=== PATIENT | male | born 2000 | race African-American/Black ===

== ENCOUNTER 2019-12-12 09:44 | Emergency (ER) | payer OTHER ==
[~2019-12-12] VITALS: Ht 182.9 cm; Wt 68.0 kg
[2019-12-12] MEDS ORDERED: NAPROSYN500 MG PO (11:07)
[2019-12-12 11:25] VITALS: BP 118/75
== END 2019-12-12 11:25 | disposition home or self-care (01) ==
LOC: ER 09:44
DX: S83.91XA Sprain of unspecified site of right knee, initial encounter (principal); F17.210 Nicotine dependence, cigarettes, uncomplicated; X50.0XXA Overexertion from strenuous movement or load, initial encounter; Y93.89 Activity, other specified; Y92.89 Other specified places as the place of occurrence of the external cause; Y99.0 Civilian activity done for income or pay

== ENCOUNTER 2020-03-04 11:07 | Emergency (ER) | payer OTHER ==
[~2020-03-04] VITALS: Ht 182.9 cm; Wt 68.0 kg
[~2020-03-04 11:07] MED LIST: NAPROSYN500 MG PO
[2020-03-04 11:11] VITALS: BP 117/75
[2020-03-04] MEDS ORDERED: KEFLEX500 M1 PO (11:50)
[2020-03-04] MEDS ORDERED: VALACYCLOVIR1000 MG PO (11:51)
== END 2020-03-04 12:05 | disposition home or self-care (01) ==
LOC: ER 11:07
DX: L01.00 Impetigo, unspecified (principal); K13.0 Diseases of lips; F17.210 Nicotine dependence, cigarettes, uncomplicated; Z91.013 Allergy to seafood

== ENCOUNTER 2021-03-01 14:59 | Emergency (ER) | payer OTHER ==
[~2021-03-01] VITALS: Ht 185.4 cm; Wt 70.8 kg
[~2021-03-01 14:59] MED LIST changes: +KEFLEX500 M1 PO; +VALACYCLOVIR1000 MG PO
[2021-03-01] MEDS ORDERED: NORCO5 PO (16:50)
[2021-03-01] MEDS ORDERED: NAPROSYN500 MG PO (16:50)
[2021-03-01 16:51] VITALS: BP 125/60
== END 2021-03-01 16:51 | disposition home or self-care (01) ==
LOC: ER 14:59
DX: S61.012A Laceration without foreign body of left thumb without damage to nail, initial encounter (principal); S63.592A Other specified sprain of left wrist, initial encounter; F17.210 Nicotine dependence, cigarettes, uncomplicated; Z91.013 Allergy to seafood; V49.88XA Car occupant (driver) (passenger) injured in other specified transport accidents, initial encounter; Y93.89 Activity, other specified; Y92.413 State road as the place of occurrence of the external cause; Y99.9 Unspecified external cause status